=== PATIENT | male | born 1985 | race Caucasian/White ===

== ENCOUNTER 2019-05-15 15:18 | Emergency (ER) | payer MEDICAID ==
[~2019-05-15] VITALS: Ht 172.7 cm; Wt 81.8 kg
[2019-05-15 17:38] VITALS: BP 129/88
== END 2019-05-15 18:39 | disposition home or self-care (01) ==
LOC: EMS 15:19
DX: Z02.89 Encounter for other administrative examinations (principal); L02.612 Cutaneous abscess of left foot; F17.210 Nicotine dependence, cigarettes, uncomplicated; F11.90 Opioid use, unspecified, uncomplicated

== ENCOUNTER 2019-05-17 15:28 | Emergency (ER) | payer MEDICAID ==
[~2019-05-17] VITALS: Ht 172.7 cm; Wt 86.4 kg
[2019-05-17 17:04] LABS: BASOPHILS % (AUTO) 0.1 % (0.0-2.0); EOSINOPHILS % (AUTO) 0.4 % (1.0-6.0); HEMATOCRIT 41.4 % (41-53); HEMOGLOBIN 13.1 g/dL (13.5-17.5); LYMPHOCYTES # (AUTO) 2.1 K/uL (1.0-4.8); LYMPHOCYTES % (AUTO) 22.6 % (22.0-44.0); MEAN CORPUSCULAR HEMOGLOBIN 24.5 pg (26.0-34.0); MEAN CORPUSCULAR HGB CONC 31.7 G/dL (31.0-37.0); MEAN CORPUSCULAR VOLUME 77 fL (80-100); MONOCYTES # (AUTO) 0.6 K/uL (0.1-1.0); MONOCYTES % (AUTO) 6.6 % (2.0-9.0); NEUTROPHILS # (AUTO) 6.7 K/uL (1.8-7.7); NEUTROPHILS % (AUTO) 70.3 % (40.0-70.0); PLATELET COUNT (AUTO) 450 K/uL (150-450); RED BLOOD CELL COUNT(AUTO) 5.36 MIL/uL (4.50-5.90); RED CELL DISTRIBUTION WIDTH 15.2 % (11.5-14.5)
[2019-05-17 17:49] LABS: ANION GAP 13 mmol/L (8-16); CARBON DIOXIDE 24 mmol/L (22-29); CHLORIDE 101 mmol/L (98-107); CREATININE 0.89 mg/dL (0.60-1.30); GLOMERULAR FILTR. RATE CALC > 60 mL/min (>60); GLUCOSE,RANDOM 85 mg/dL (70-110); POTASSIUM 3.7 mmol/L (3.5-5.1); SODIUM SERUM 138 mmol/L (136-145); UREA NITROGEN, BLOOD 10 mg/dL (7-18)
[2019-05-17] MEDS ORDERED: ONDANSETRON HCL 4 MG TABLET PO ONE (18:00)
[2019-05-17] MEDS ORDERED: ChlordiazePOXIDE HCL 25 MG CAPSULE PO ONE (18:00)
[2019-05-17 18:05] LABS: ALBUMIN 3.4 g/dL (3.4-5.0); ASPARTATE AMINOTRANSFERASE 13 U/L (15-37); TOTAL PROTEIN, SERUM 8.9 g/dL (6.4-8.2)
[2019-05-17 18:15] VITALS: BP 111/72
[2019-05-17 18:20] LABS: ALANINE AMINOTRANSFERASE 16 U/L (12-78); ALKALINE PHOSPHATASE 63 U/L (46-116); BILIRUBIN,TOTAL 0.2 mg/dL (0.1-1.0)
== END 2019-05-17 19:05 | disposition home or self-care (01) ==
LOC: EMS 15:31
DX: F13.10 Sedative, hypnotic or anxiolytic abuse, uncomplicated (principal); F11.10 Opioid abuse, uncomplicated; R11.0 Nausea; M79.10 Myalgia, unspecified site; I10 Essential (primary) hypertension; F19.90 Other psychoactive substance use, unspecified, uncomplicated
CPT/HCPCS: 36415; 80053; 85025; 99283; G0480; Q0162

== ENCOUNTER 2019-07-24 10:22 | Emergency (ER) | payer MEDICAID ==
[~2019-07-24] VITALS: Ht 170.2 cm; Wt 77.3 kg
[2019-07-24] MEDS ORDERED: METH10 PO (10:31)
[2019-07-24] MEDS ORDERED: SULFAMETHOX/TRIMETH DS 800-160 MG/TABLET PO ONE (11:15)
[2019-07-24] MEDS ORDERED: IBUPROFEN 600 MG TABLET PO ONE (11:15)
[2019-07-24 12:26] VITALS: BP 130/80
== END 2019-07-24 12:28 | disposition home or self-care (01) ==
LOC: EMS 10:27
DX: L03.115 Cellulitis of right lower limb (principal); I10 Essential (primary) hypertension; F11.90 Opioid use, unspecified, uncomplicated; F19.90 Other psychoactive substance use, unspecified, uncomplicated; F13.10 Sedative, hypnotic or anxiolytic abuse, uncomplicated